=== PATIENT | male | born 1970 | race American Indian/Alaskan Native ===

== ENCOUNTER 2021-06-30 10:19 | Outpatient (CLI) | payer OTHER ==
[2021-06-30 11:03] LABS: Albumin 4.5 g/dL (3.9-5); Calcium 9.6 mg/dL (8.4-10.2)
--- NOTE | 2021-06-30 11:41 | XRay Report ---
BILATERAL SHOULDERS 3 VIEWS INDICATION: PAIN. COMPARISON: None. IMPRESSION: No acute osseous or soft tissue abnormality. No significant DJD. LUMBOSACRAL SPINE 3 VIEWS INDICATION: PAIN. COMPARISON: None. IMPRESSION: Normal alignment. Mild disc space narrowing and facet arthropathy are identified at L5- S1. The remaining levels are within normal limits. The SI joints demonstrate mild symmetric degenerat david changes. No bony erosions or fusion. No acute osseous or soft tissue abnormality. Signer Name: Jaylon Moy Jr, MD Signed: 06/30/2021 11:37 AM Workstation Name: [id number]
== END 2021-06-30 10:20 | disposition home or self-care (01) ==
LOC: LAB 10:19
PROVIDERS: ATTEND Internal Medicine
DX: M47.817 Spondylosis without myelopathy or radiculopathy, lumbosacral region (principal); M25.512 Pain in left shoulder; M25.511 Pain in right shoulder
CPT/HCPCS: 36415; 72100; 80053